=== PATIENT | male | born 1970 | race Caucasian/White ===

== ENCOUNTER 2025-03-23 06:23 | Inpatient (IN) | payer MEDICARE, OTHER ==
[2025-03-23] VITALS (8 sets, daily range): BP systolic 101–130; BP diastolic 66–81; TEMP 97.7–98.2; O2SAT 87–99
[~2025-03-23] VITALS: Ht 175.3 cm; Wt 89.8 kg
[2025-03-23] MEDS ORDERED: BUPIVACAINE 0.5 % PF 150 MG/30 ML VIAL ONE (07:02)
[2025-03-23] MEDS ORDERED: LIDOCAINE 1% INJ 50 ML MDV IJ ONE ×2 (07:03→08:17)
[2025-03-23] MEDS ORDERED: LIDOCAINE 1%-EPI 1:100,000 20 ML VIAL ONE (07:03)
[2025-03-23] MEDS ORDERED: VANCOMYCIN 1 GM VIAL ONE (07:03)
[2025-03-23] MEDS ORDERED: BACITRACIN ZINC OINT (15 GM) 15 GM TUBE TP ONE (07:03)
[2025-03-23 07:27] LABS: BASOPHILS # (AUTO) 0.1 K/uL (0.0-0.2); BASOPHILS % (AUTO) 1.3 % (0.0-2.0); EOSINOPHILS # (AUTO) 0.2 K/uL (0.0-0.7); HEMATOCRIT 40 % (39-51); HEMOGLOBIN 13.2 g/dL (13.5-17.5); LYMPHOCYTES # (AUTO) 1.1 K/uL (0.8-4.8); LYMPHOCYTES % (AUTO) 25.7 % (20.0-44.0); MEAN CORPUSCULAR HEMOGLOBIN 31 PG (26.0-33.0); MEAN CORPUSCULAR HGB CONC 33 g/dl (31.0-36.0); MEAN CORPUSCULAR VOLUME 94 fL (80-96); MONOCYTES # (AUTO) 0.4 K/uL (0.1-1.30); MONOCYTES % (AUTO) 9.4 % (2.0-12.0); NEUTROPHILS # (AUTO) 2.6 K/uL (1.8-8.9); NEUTROPHILS % (AUTO) 59.6 % (43.0-81.0); PLATELET COUNT (AUTO) 214 K/uL (150-450); RED BLOOD CELL COUNT(AUTO) 4.28 MIL/uL (4.5-6.0); RED CELL DISTRIBUTION WIDTH 15.1 % (11.5-15.0); WHITE BLOOD COUNT (AUTO) 4.3 K/uL (4.3-11.0)
[2025-03-23] MEDS ORDERED: FENTANYL PF 250MCG/5ML AMPUL ONE (07:33)
[2025-03-23] MEDS ORDERED: ROCURONIUM BROMIDE 50 MG/5 ML ONE ×3 (07:34→07:55)
[2025-03-23 07:39] LABS: ALBUMIN 3.1 g/dL (3.4-5.0); BILIRUBIN,TOTAL 0.7 mg/dL (0.2-1.0); CALCIUM, SERUM 8.4 mg/dL (8.5-10.1); POTASSIUM 4.2 mmol/L (3.5-5.1); TOTAL PROTEIN, SERUM 7.3 g/dL (6.4-8.2)
[2025-03-23] MEDS ORDERED: ONDANSETRON HCL/PF 4 MG/2 ML VIAL IVP PRN ×2 (09:30→13:30)
[2025-03-23] MEDS ORDERED: FENTANYL PF 100MCG/2ML AMPUL IV PRN (09:30)
[2025-03-23] MEDS ORDERED: MORPHINE SULFATE INJ 10 MG/ML DISP.SYRIN IV PRN (09:30)
[2025-03-23] MEDS ORDERED: CELLULOSE,OXIDIZED 1 PKT EACH MC ONE (09:35)
[2025-03-23] MEDS ORDERED: CELLULOSE,OXIDIZED 1 EA PACK MC ONE (09:35)
[2025-03-23] MEDS ORDERED: DEXTROSE 50%-WATER 50 ML DISP.SYRIN IV PRN (13:30)
[2025-03-23] MEDS ORDERED: ENOXAPARIN SODIUM 40 MG/0.4 ML DISP.SYRIN SQ SCH (13:30)
[2025-03-23] MEDS: HEPARIN SODIUM, PORCINE 5000 UNITS/1 ML VIAL SQ SCH (15:14)
[2025-03-23] MEDS: ANCEF 1 GM/50 ML D5W IV SCH (15:15)
[2025-03-23] MEDS: BLOOD SUGAR DIAGNOSTIC 1 EACH STRIP VI SCH (17:04)
[2025-03-23] MEDS: INSULIN REGULAR, HUMAN 100 UNIT/ML 3 ML VIAL SQ PRN (17:07)
[2025-03-23] MEDS: ACETAMINOPHEN 325 MG TABLET PO PRN (17:08)
[2025-03-23] MEDS ORDERED: DORZ10DR11 EACHEYE (17:12)
[2025-03-23] MEDS ORDERED: ATOR20TA PO (17:12)
[2025-03-23] MEDS ORDERED: MIDO10TA PO (17:12)
[2025-03-23] MEDS ORDERED: LATA2.5D15 EACHEYE (17:12)
[2025-03-23] MEDS ORDERED: VIT1TABL46 PO (17:12)
[2025-03-23] MEDS ORDERED: CALC667T2 PO (17:12)
[2025-03-23] MEDS ORDERED: INSU100I30 SQ (17:12)
[2025-03-23] MEDS: *INSULIN REGULAR(HUMULIN R)HUM 100 UNIT/ML VIAL SQ PRN (21:17)
[2025-03-24 06:32] LABS: BASOPHILS % (AUTO) 0.1 % (0.0-2.0); HEMATOCRIT 38 % (39-51); LYMPHOCYTES # (AUTO) 0.9 K/uL (0.8-4.8); LYMPHOCYTES % (AUTO) 10.3 % (20.0-44.0); MEAN CORPUSCULAR HEMOGLOBIN 32 PG (26.0-33.0); MEAN CORPUSCULAR HGB CONC 34 g/dl (31.0-36.0); MEAN CORPUSCULAR VOLUME 92 fL (80-96); MONOCYTES # (AUTO) 0.8 K/uL (0.1-1.30); NEUTROPHILS # (AUTO) 6.6 K/uL (1.8-8.9); NEUTROPHILS % (AUTO) 79.6 % (43.0-81.0); PLATELET COUNT (AUTO) 197 K/uL (150-450); RED BLOOD CELL COUNT(AUTO) 4.11 MIL/uL (4.5-6.0); RED CELL DISTRIBUTION WIDTH 14.8 % (11.5-15.0); WHITE BLOOD COUNT (AUTO) 8.3 K/uL (4.3-11.0)
[2025-03-24 07:13] LABS: CALCIUM, SERUM 8.2 mg/dL (8.5-10.1); MAGNESIUM 2.5 mg/dL (1.8-2.4); PHOSPHORUS 4.6 mg/dL (2.5-4.9); POTASSIUM 4.8 mmol/L (3.5-5.1)
[2025-03-24 07:25] LABS: CREATININE 11.1 mg/dL (0.6-1.3)
[2025-03-24 08:00] VITALS: BP 110/63; TEMP 98.1; O2SAT 97
[2025-03-24 16:00] VITALS: BP 121/68; TEMP 98.1; O2SAT 98
[2025-03-24] MEDS: DOCUSATE SODIUM 100 MG CAPSULE PO SCH (17:45)
[2025-03-24] MEDS: HYDROCODONE/APAP 5/325MG TABLET PO PRN (22:40)
[2025-03-24] MEDS ORDERED: TEMAZEPAM 15 MG CAPSULE PO PRN (23:00)
[2025-03-25 06:43] LABS: BASOPHILS % (AUTO) 0.8 % (0.0-2.0); EOSINOPHILS # (AUTO) 0.1 K/uL (0.0-0.7); EOSINOPHILS % (AUTO) 2.2 % (0.0-6.0); HEMATOCRIT 38 % (39-51); HEMOGLOBIN 12.7 g/dL (13.5-17.5); LYMPHOCYTES % (AUTO) 20.6 % (20.0-44.0); MEAN CORPUSCULAR HEMOGLOBIN 31 PG (26.0-33.0); MEAN CORPUSCULAR HGB CONC 33 g/dl (31.0-36.0); MEAN CORPUSCULAR VOLUME 93 fL (80-96); MONOCYTES # (AUTO) 0.6 K/uL (0.1-1.30); MONOCYTES % (AUTO) 11.6 % (2.0-12.0); NEUTROPHILS # (AUTO) 3.1 K/uL (1.8-8.9); NEUTROPHILS % (AUTO) 64.8 % (43.0-81.0); PLATELET COUNT (AUTO) 164 K/uL (150-450); RED CELL DISTRIBUTION WIDTH 14.9 % (11.5-15.0); WHITE BLOOD COUNT (AUTO) 4.8 K/uL (4.3-11.0)
[2025-03-25 06:45] LABS: CALCIUM, SERUM 8.5 mg/dL (8.5-10.1); MAGNESIUM 2.3 mg/dL (1.8-2.4); PHOSPHORUS 5.1 mg/dL (2.5-4.9); POTASSIUM 4.4 mmol/L (3.5-5.1)
[2025-03-25 08:00] VITALS: BP 110/70; TEMP 98.4; O2SAT 97
[2025-03-25] MEDS ORDERED: TIMOLOL MAL/DORZOLAM HCL OPHTH 10 ML BOTTLE EACHEYE SCH (10:00)
[2025-03-25] MEDS: CALCIUM ACETATE 667 MG CAP/TAB PO SCH (10:57)
[2025-03-25] MEDS: VIT B CMPLX 3/FA/VIT C/BIOTIN 1 TAB TABLET PO SCH (11:27)
[2025-03-25] MEDS ORDERED: LATANOPROST EYE DROP 0.005% 2.5 ML BOTTLE EACHEYE SCH (22:00)
[2025-03-26 04:07] LABS: HEPATITIS B SURFACE AB (QUAL) Reactive (.)
== END 2025-03-25 17:04 | disposition home health service (06) | DRG 503 ==
LOC: DS 06:23 → MED 11:43
PROVIDERS: ADMIT Nurse Practitioner Acute Care; ATTEND Nurse Practitioner Acute Care
PROC: 0SGQ04Z Fusion of Left Toe Phalangeal Joint with Internal Fixation Device, Open Approach (ICD-10-PCS; 2025-03-23)
PROC: 0SGP04Z Fusion of Right Toe Phalangeal Joint with Internal Fixation Device, Open Approach (ICD-10-PCS; 2025-03-23)
PROC: 0Q8Q0ZZ Division of Right Toe Phalanx, Open Approach (ICD-10-PCS; 2025-03-23)
PROC: 0Q8 Lower Bones, Division (ICD-10-PCS; 2025-03-23)
PROC: 0SSM04Z Reposition Right Metatarsal-Phalangeal Joint with Internal Fixation Device, Open Approach (ICD-10-PCS; principal; 2025-03-23 07:30)
PROC: 0SSN04Z Reposition Left Metatarsal-Phalangeal Joint with Internal Fixation Device, Open Approach (ICD-10-PCS; 2025-03-23 07:30)
PROC: 5A1D70Z Performance of Urinary Filtration, Intermittent, Less than 6 Hours Per Day (ICD-10-PCS; 2025-03-24)
DX: M20.5X1 Other deformities of toe(s) (acquired), right foot (principal); N18.6 End stage renal disease; I47.10 Supraventricular tachycardia, unspecified; I12.0 Hypertensive chronic kidney disease with stage 5 chronic kidney disease or end stage renal disease; M20.5X2 Other deformities of toe(s) (acquired), left foot; E11.621 Type 2 diabetes mellitus with foot ulcer; E11.22 Type 2 diabetes mellitus with diabetic chronic kidney disease; Z99.2 Dependence on renal dialysis; M89.8X9 Other specified disorders of bone, unspecified site; E11.42 Type 2 diabetes mellitus with diabetic polyneuropathy; L84 Corns and callosities; E65 Localized adiposity; E78.5 Hyperlipidemia, unspecified; D64.9 Anemia, unspecified; I34.0 Nonrheumatic mitral (valve) insufficiency; I36.1 Nonrheumatic tricuspid (valve) insufficiency; S93.149A Subluxation of metatarsophalangeal joint of unspecified toe(s), initial encounter; X58.XXXA Exposure to other specified factors, initial encounter; Y92.9 Unspecified place or not applicable; Z79.4 Long term (current) use of insulin; Z79.899 Other long term (current) drug therapy; L97.529 Non-pressure chronic ulcer of other part of left foot with unspecified severity; L97.519 Non-pressure chronic ulcer of other part of right foot with unspecified severity
CPT/HCPCS: 36415; 73620-TC; 80048-TC; 80053-TC; 82962-TC; 83735-TC; 84100-TC; 85025-TC; 86706; 87081-TC; 87340; 90935-TC; 97116-TC; 97530-TC; A4223; A6402; C1713; G0378; J0690; J1100; J1644; J1815; J2704; J2765; J3010; J3370; J3490; J7030; J7060

== ENCOUNTER 2025-04-18 12:08 | Inpatient (IN) | payer MEDICARE, OTHER ==
[~2025-04-18] VITALS: Ht 177.8 cm; Wt 88.5 kg
[~2025-04-18 12:08] MED LIST: ATOR20TA PO; CALC667T2 PO; CIPR-262 PO; DORZ10DR11 EACHEYE; INSU100I30 SQ; LATA2.5D15 EACHEYE; MIDO10TA PO; SULF1TAB48 PO; VIT1TABL46 PO
[2025-04-18] MEDS: PIPERACILLIN /TAZOBACTAM 3.375 G in IV D5W 50 ML IV ONE (14:50)
[2025-04-18 15:05] LABS: BASOPHILS # (AUTO) 0.1 K/uL (0.0-0.2); BASOPHILS % (AUTO) 0.9 % (0.0-2.0); EOSINOPHILS # (AUTO) 0.2 K/uL (0.0-0.7); EOSINOPHILS % (AUTO) 3.2 % (0.0-6.0); HEMATOCRIT 33 % (39-51); HEMOGLOBIN 11.1 g/dL (13.5-17.5); LYMPHOCYTES # (AUTO) 1.3 K/uL (0.8-4.8); LYMPHOCYTES % (AUTO) 17.4 % (20.0-44.0); MEAN CORPUSCULAR HEMOGLOBIN 31 PG (26.0-33.0); MEAN CORPUSCULAR HGB CONC 33 g/dl (31.0-36.0); MEAN CORPUSCULAR VOLUME 93 fL (80-96); MONOCYTES # (AUTO) 0.6 K/uL (0.1-1.30); MONOCYTES % (AUTO) 7.7 % (2.0-12.0); NEUTROPHILS # (AUTO) 5.3 K/uL (1.8-8.9); NEUTROPHILS % (AUTO) 70.8 % (43.0-81.0); PLATELET COUNT (AUTO) 277 K/uL (150-450); RED BLOOD CELL COUNT(AUTO) 3.58 MIL/uL (4.5-6.0); RED CELL DISTRIBUTION WIDTH 14.6 % (11.5-15.0); WHITE BLOOD COUNT (AUTO) 7.5 K/uL (4.3-11.0)
[2025-04-18 15:17] LABS: ALBUMIN 3.3 g/dL (3.4-5.0); BILIRUBIN,DIRECT 0.1 mg/dL (0.0-0.2); BILIRUBIN,TOTAL 0.4 mg/dL (0.2-1.0); CALCIUM, SERUM 8.8 mg/dL (8.5-10.1); TOTAL PROTEIN, SERUM 8.4 g/dL (6.4-8.2)
[2025-04-18 15:18] LABS: INR 1.08 (0.91-1.10); PARTIAL THROMBOPLASTIN TIME 24.9 SEC (24.3-34.3); PROTHROMBIN TIME 11.4 SECS (9.2-11.1)
[2025-04-18 15:19] LABS: CREATININE 11.4 mg/dL (0.6-1.3)
[2025-04-18] MEDS: VANCOMYCIN 1 GM in IV D5W 250 ML IV ONE (15:25)
[2025-04-18] MEDS ORDERED: ZINC50TA69 PO (15:37)
[2025-04-18] MEDS ORDERED: ASCO100031 PO (15:37)
[2025-04-18] MEDS ORDERED: MAG HYDROX/AL HYDROX/SIMETH 30 ML UDC PO PRN (16:30)
[2025-04-18] MEDS ORDERED: ACETAMINOPHEN 325 MG TABLET PO PRN (16:30)
[2025-04-18] MEDS ORDERED: MAGNESIUM HYDROXIDE 30 ML UDC PO PRN (16:30)
[2025-04-18] MEDS ORDERED: HYDROCODONE/APAP 10/325MG TABLET PO PRN (16:30)
[2025-04-18] MEDS ORDERED: TEMAZEPAM 15 MG CAPSULE PO PRN (16:30)
[2025-04-18] MEDS ORDERED: HYDROCODONE/APAP 5/325MG TABLET PO PRN (16:30)
[2025-04-18] MEDS ORDERED: ONDANSETRON HCL/PF 4 MG/2 ML VIAL IVP PRN (16:30)
[2025-04-18] MEDS ORDERED: Z GUARD REMEDY 4 OZ OINT TP PRN (16:30)
[2025-04-18] MEDS ORDERED: DEXTROSE 50%-WATER 50 ML DISP.SYRIN IV PRN (16:30)
[2025-04-18 17:03] VITALS: BP 116/69; TEMP 97.3; O2SAT 100
[2025-04-18] MEDS: BLOOD SUGAR DIAGNOSTIC 1 EACH STRIP IN SCH (17:49)
[2025-04-18 20:00] VITALS: BP 102/64; TEMP 97.9; O2SAT 100
[2025-04-18] MEDS: PIPERACILLIN /TAZOBACTAM 2.25 G in IV D5W 50 ML IV SCH (21:27)
[2025-04-18] MEDS: INSULIN REGULAR, HUMAN 100 UNIT/ML 3 ML VIAL SQ PRN (22:30)
[2025-04-19] MEDS ORDERED: PIPERACILLIN /TAZOBACTAM 3.375 G in IV D5W 100 ML IV SCH (02:00)
[2025-04-19 04:00] VITALS: BP 96/69; TEMP 97.5; O2SAT 97
[2025-04-19 07:05] LABS: BASOPHILS % (AUTO) 0.5 % (0.0-2.0); EOSINOPHILS # (AUTO) 0.3 K/uL (0.0-0.7); EOSINOPHILS % (AUTO) 3.7 % (0.0-6.0); HEMATOCRIT 31 % (39-51); HEMOGLOBIN 10.4 g/dL (13.5-17.5); LYMPHOCYTES # (AUTO) 1.2 K/uL (0.8-4.8); LYMPHOCYTES % (AUTO) 16.2 % (20.0-44.0); MEAN CORPUSCULAR HEMOGLOBIN 30 PG (26.0-33.0); MEAN CORPUSCULAR HGB CONC 33 g/dl (31.0-36.0); MEAN CORPUSCULAR VOLUME 91 fL (80-96); MONOCYTES # (AUTO) 0.5 K/uL (0.1-1.30); MONOCYTES % (AUTO) 6.6 % (2.0-12.0); NEUTROPHILS # (AUTO) 5.6 K/uL (1.8-8.9); PLATELET COUNT (AUTO) 238 K/uL (150-450); RED CELL DISTRIBUTION WIDTH 14.5 % (11.5-15.0); WHITE BLOOD COUNT (AUTO) 7.6 K/uL (4.3-11.0)
[2025-04-19 07:31] LABS: CALCIUM, SERUM 8.7 mg/dL (8.5-10.1); MAGNESIUM 2.6 mg/dL (1.8-2.4); PHOSPHORUS 6.2 mg/dL (2.5-4.9); POTASSIUM 4.4 mmol/L (3.5-5.1)
[2025-04-19 08:00] VITALS: BP 111/71; TEMP 98.1; O2SAT 98
[2025-04-19] MEDS: DAKINS QUARTER STRENGTH (0.125%) 480 ML BOTTLE TOP SCH (10:00)
[2025-04-19] MEDS: PANTOPRAZOLE 40 MG TABLET.DR PO SCH (10:00)
[2025-04-19 10:16] LABS: CREATININE 12.7 mg/dL (0.6-1.3)
[2025-04-19 12:00] VITALS: BP 111/71; TEMP 98.1; O2SAT 98
[2025-04-19 16:00] VITALS: BP 103/68; TEMP 97.9; O2SAT 100
[2025-04-19 20:00] VITALS: BP 115/70; TEMP 97.7; O2SAT 100
[2025-04-19] MEDS: TIMOLOL MAL/DORZOLAM HCL OPHTH 10 ML BOTTLE EACHEYE SCH (22:30)
[2025-04-19] MEDS: MIDODRINE HCL (5MG) 5 MG TABLET PO SCH (22:32)
[2025-04-19] MEDS ORDERED: LATANOPROST EYE DROP 0.005% 2.5 ML BOTTLE ONE (23:30)
[2025-04-19] MEDS: LATANOPROST EYE DROP 0.005% 2.5 ML BOTTLE EACHEYE SCH (23:35)
[2025-04-20] VITALS (9 sets, daily range): BP systolic 104–139; BP diastolic 55–79; TEMP 97.5–98.4; O2SAT 99–100
[2025-04-20] MEDS: VANCOMYCIN POST DIALYSIS 500MG IV PRN (00:02)
[2025-04-20 07:19] LABS: INR 1.13 (0.91-1.10); PARTIAL THROMBOPLASTIN TIME 26.5 SEC (24.3-34.3); PROTHROMBIN TIME 11.9 SECS (9.2-11.1)
[2025-04-20 07:20] LABS: BASOPHILS # (AUTO) 0.1 K/uL (0.0-0.2); EOSINOPHILS # (AUTO) 0.3 K/uL (0.0-0.7); EOSINOPHILS % (AUTO) 6.3 % (0.0-6.0); HEMATOCRIT 33 % (39-51); LYMPHOCYTES # (AUTO) 1.5 K/uL (0.8-4.8); LYMPHOCYTES % (AUTO) 29.1 % (20.0-44.0); MEAN CORPUSCULAR HEMOGLOBIN 31 PG (26.0-33.0); MEAN CORPUSCULAR HGB CONC 34 g/dl (31.0-36.0); MEAN CORPUSCULAR VOLUME 92 fL (80-96); MONOCYTES # (AUTO) 0.5 K/uL (0.1-1.30); MONOCYTES % (AUTO) 9.3 % (2.0-12.0); NEUTROPHILS # (AUTO) 2.8 K/uL (1.8-8.9); NEUTROPHILS % (AUTO) 54.3 % (43.0-81.0); PLATELET COUNT (AUTO) 267 K/uL (150-450); RED BLOOD CELL COUNT(AUTO) 3.56 MIL/uL (4.5-6.0); RED CELL DISTRIBUTION WIDTH 14.4 % (11.5-15.0); WHITE BLOOD COUNT (AUTO) 5.1 K/uL (4.3-11.0)
[2025-04-20 07:22] LABS: CALCIUM, SERUM 8.5 mg/dL (8.5-10.1); POTASSIUM 4.5 mmol/L (3.5-5.1)
[2025-04-20] MEDS: CALCIUM ACETATE 667 MG CAP/TAB PO SCH (08:00)
[2025-04-20 08:02] LABS: CREATININE 9.8 mg/dL (0.6-1.3)
[2025-04-20] MEDS: ZINC SULFATE 220 MG CAPSULE PO SCH (09:00)
[2025-04-20] MEDS: ASCORBIC ACID 500 MG TABLET PO SCH (09:00)
[2025-04-20] MEDS: VIT B CMPLX 3/FA/VIT C/BIOTIN 1 TAB TABLET PO SCH (09:00)
[2025-04-20] MEDS: ATORVASTATIN 10 MG TABLET PO SCH (22:53)
[2025-04-21] VITALS: BP 139/55; TEMP 98.1; O2SAT 100
[2025-04-21 04:00] VITALS: BP 118/62; TEMP 98.1; O2SAT 99
[2025-04-21 07:33] LABS: CALCIUM, SERUM 8.6 mg/dL (8.5-10.1); POTASSIUM 4.9 mmol/L (3.5-5.1)
[2025-04-21 07:42] LABS: CREATININE 11.9 mg/dL (0.6-1.3)
[2025-04-21 08:00] VITALS: BP 118/72; TEMP 97.7; O2SAT 99
[2025-04-21 12:00] VITALS: BP 118/72; TEMP 97.7; O2SAT 99
[2025-04-21] MEDS ORDERED: VANCOMYCIN HCL 1.25 GM in IV D5W 250 ML IV SCH (15:00)
[2025-04-21 16:00] VITALS: BP 133/71; TEMP 97.7; O2SAT 99
[2025-04-21 20:00] VITALS: BP 148/102; TEMP 98.1; O2SAT 100
[2025-04-22 05:00] VITALS: BP 128/61; TEMP 98.2; O2SAT 100
[2025-04-22 07:10] LABS: CALCIUM, SERUM 8.7 mg/dL (8.5-10.1); POTASSIUM 4.9 mmol/L (3.5-5.1)
[2025-04-22 07:23] LABS: CREATININE 8.9 mg/dL (0.6-1.3)
[2025-04-22 08:00] VITALS: BP 148/72; TEMP 98.1; O2SAT 99
[2025-04-22 16:00] VITALS: BP 122/66; TEMP 97.7; O2SAT 100
[2025-04-22 20:00] VITALS: BP 139/58; TEMP 97.7; O2SAT 100
[2025-04-23 04:00] VITALS: BP 126/59; TEMP 98.1; O2SAT 100
[2025-04-23 06:37] LABS: CALCIUM, SERUM 8.8 mg/dL (8.5-10.1); POTASSIUM 5.3 mmol/L (3.5-5.1)
[2025-04-23 07:14] LABS: CREATININE 10.9 mg/dL (0.6-1.3)
[2025-04-23 08:00] VITALS: BP 143/55; TEMP 97.9; O2SAT 100
[2025-04-23 16:00] VITALS: BP 136/90; TEMP 97.9; O2SAT 97
[2025-04-23 20:00] VITALS: BP 119/81; TEMP 97.6; O2SAT 97
[2025-04-24 04:00] VITALS: BP 130/79; TEMP 98; O2SAT 99
[2025-04-24 07:40] LABS: POTASSIUM 4.7 mmol/L (3.5-5.1)
[2025-04-24 08:00] VITALS: BP 130/89; TEMP 97.7; O2SAT 98
[2025-04-24 08:08] LABS: CREATININE 9.3 mg/dL (0.6-1.3)
[2025-04-24 16:00] VITALS: BP 137/71; TEMP 97.9; O2SAT 99
[2025-04-24 20:00] VITALS: BP 120/82; TEMP 97.9; O2SAT 100
[2025-04-25 04:00] VITALS: BP 99/61; TEMP 98.6; O2SAT 98
[2025-04-25 08:00] VITALS: BP 110/61; TEMP 98.6; O2SAT 99
[2025-04-25] MEDS ORDERED: Hydrocodone/Apap 5/325MG PO (15:14)
[2025-04-25] MEDS ORDERED: Blood Sugar Diagnostic IN (15:14)
[2025-04-25] MEDS ORDERED: CEFE2PIG2 IV (15:14)
[2025-04-25] MEDS ORDERED: INSU100V28 SQ (15:14)
[2025-04-25] MEDS ORDERED: VANC750F2 IV (15:14)
[2025-04-25] MEDS ORDERED: PANT40TA49 PO (15:14)
[2025-04-25 16:00] VITALS: BP 121/65; TEMP 98.4; O2SAT 100
== END 2025-04-25 16:55 | DRG 987 ==
LOC: ER 12:08 → MEDSG1 15:34
PROVIDERS: ADMIT Nurse Practitioner Acute Care; ATTEND Nurse Practitioner Acute Care
PROC: 5A1D70Z Performance of Urinary Filtration, Intermittent, Less than 6 Hours Per Day (ICD-10-PCS; 2025-04-19)
PROC: 0QP Lower Bones, Removal (ICD-10-PCS; 2025-04-20)
PROC: 3E0102A Introduction of Anti-Infective Envelope into Subcutaneous Tissue, Open Approach (ICD-10-PCS; 2025-04-20)
PROC: 0J9R0ZZ Drainage of Left Foot Subcutaneous Tissue and Fascia, Open Approach (ICD-10-PCS; principal; 2025-04-20 11:30)
DX: L03.115 Cellulitis of right lower limb (principal); N18.6 End stage renal disease; E44.0 Moderate protein-calorie malnutrition; T84.223A Displacement of internal fixation device of bones of foot and toes, initial encounter; E87.1 Hypo-osmolality and hyponatremia; I12.0 Hypertensive chronic kidney disease with stage 5 chronic kidney disease or end stage renal disease; L03.116 Cellulitis of left lower limb; Z68.28 Body mass index [BMI] 28.0-28.9, adult; E78.5 Hyperlipidemia, unspecified; E11.22 Type 2 diabetes mellitus with diabetic chronic kidney disease; Z99.2 Dependence on renal dialysis; Z79.4 Long term (current) use of insulin; Z79.899 Other long term (current) drug therapy; E88.09 Other disorders of plasma-protein metabolism, not elsewhere classified; D63.1 Anemia in chronic kidney disease; E11.42 Type 2 diabetes mellitus with diabetic polyneuropathy
CPT/HCPCS: 36415; 71045-TC; 73630-TC; 80048-TC; 80076-TC; 80202-TC; 82962-TC; 83735-TC; 84100-TC; 85025-TC; 85610-TC; 85730-TC; 87040-TC; 87102-TC; 88300-TC; 90935-TC; A6402; A6403; C1713; G0378; J0690; J1815; J2543; J2704; J3370; J3490; J7030; J7040; J7050; J7060